=== PATIENT | male | born 1940 | race Caucasian/White ===

== ENCOUNTER 2017-06-12 09:38 | Inpatient (IN) | payer MEDICARE, OTHER ==
[2017-06-12 10:23] LABS: #Eosinphils 0.1 thou/uL (0.0-0.7); #Monocytes 0.6 thou/uL (0.11-0.59); #Neutrophils 7.4 thou/uL (1.40-6.50); %Basophils 0.1 % (0.0-1.0); %Eosinophils 1.4 % (0.0-10.0); %Lymphocytes 10.6 % (21.0-51.0); %Monocytes 6.3 % (0.0-10.0); %Neutrophils 81.7 % (42.0-75.0); Hemoglobin 15.9 g/dL (14.0-18.0); Mean Corpuscular Hemoglobin 33.1 pg (27.0-31.0); Mean Corpuscular Volume 97.5 fl (80.0-94.0); Mean Platelet Volume 7.3 fL (7.4-10.4); Platelet Count 183 thou/uL (130-400); RBC Distribution Width 12.9 % (11.5-14.5)
[2017-06-12 10:33] LABS: INR-International Normal Ratio 1.1; PTT 29.1 SEC (22.9-36.1); Prothrombin Time 14.5 SEC (12.0-14.7)
[2017-06-12 10:50] LABS: ALT (SGPT) 88 U/L (8-55); AST (SGOT) 128 U/L (5-34); Albumin 3.9 g/dL (3.4-4.8); Alkaline Phosphatase 92 U/L (40-150); Anion Gap 9 mmol/L (10-20); BUN (Urea Nitrogen) 16 mg/dL (8.4-25.7); Bilirubin, Total 1.4 mg/dL (0.2-1.2); CK (CPK) 94 U/L (30-200); Calc. Creatinine Clearance 0 mL/min (70-130); Calcium 8.8 mg/dL (7.8-10.44); Carbon Dioxide 27 mmol/L (23-31); Chloride 106 mmol/L (98-107); Estimated GFR-MDRD Greater than 90; Globulin 2.3 g/dL (2.4-3.5); Glucose 142 mg/dL (83-110); Potassium 4.1 mmol/L (3.5-5.1); Protein, Total 6.2 g/dL (5.8-8.1); Sodium 138 mmol/L (136-145)
[2017-06-12 10:52] LABS: CKMB 2.1 ng/mL (0-6.6); Troponin I 0.012 ng/mL (< 0.028)
[2017-06-12] MEDS ORDERED: Pantoprazole 40 MG VIAL ONE (11:29)
[2017-06-12] MEDS ORDERED: Mag-Al 1200 mg/1200 mg/30 ML UDCUP ONE (11:30)
[2017-06-12] MEDS ORDERED: Lidocaine Viscous Sol 2% 15 ml UD Cup ONE (11:31)
--- NOTE | 2017-06-12 13:03 | RAD ---
ONE VIEW CHEST: TWO VIEWS ABDOMEN: HISTORY: Epigastric pain. Chest pain. FINDINGS: CHEST: Slight elongation of the aorta. Normal cardiac silhouette. Pulmonary vessels and hilum are normal. Costophrenic angles are clear. Patchy interstitial opacities without consolidation or mass. Bilateral nipple shadows are noted. No pneumothorax or osseous abnormalities. ABDOMEN: Nonspecific bowel gas pattern. Scattered fecal material in a nondistended, nondilated colo n. No differential air-fluid levels. No pneumoperitoneum. No specific density in the abdomen or pe lvis. IMPRESSION: 1. Atherosclerosis. 2. Patchy interstitial opacities. Correlate for infiltrate. 3. Nonspecific bowel gas pattern. POS: [facility]
[2017-06-12 13:29] LABS: Troponin I Less than 0.010 ng/mL (< 0.028)
[2017-06-12] MEDS ORDERED: Ondansetron HCl/PF 4 MG/2 ML Vial IVP PRN (14:02)
[2017-06-12] MEDS ORDERED: Acetaminophen 325 MG TAB PO PRN (14:02)
[2017-06-12] MEDS ORDERED: Ondansetron ODT 4 MG TAB SL PRN (14:02)
[2017-06-12 14:28] VITALS: BMI 25.7
[2017-06-12] MEDS ORDERED: Acetaminophen 650 MG Suppository PR PRN (14:54)
[2017-06-12] MEDS ORDERED: Nitroglycerin 0.4 MG TAB (25 Tab Bottle) PO PRN (14:54)
[2017-06-12] MEDS: Nitroglycerin 2% Ointment 1 INCH/1 GM Packet TOP SCH ×2 (15:20→20:03)
[2017-06-12] MEDS ORDERED: Aspirin 325 MG TAB PO SCH (16:00)
[2017-06-12 16:42] LABS: Bilirubin Small (Negative); Blood, Urine Negative (Negative); Clarity CLEAR (Clear); Glucose, Urine (Dipstick) Negative (Negative); Leukocyte Negative (Negative); Nitrite Negative (Negative); Protein, Urine (Dipstick) Negative (Neg-Trace); Specific Gravity, Urine 1.027 (1.002-1.036); pH, Urine 5.5 (5.0-9.0)
[2017-06-12] MEDS ORDERED: ISOVUE-370 76%-LOCM 1 ML ONE (16:56)
[2017-06-12] MEDS: Nicotine 21 MG PATCH TD SCH (17:04)
[2017-06-12 17:16] LABS: Troponin I Less than 0.010 ng/mL (< 0.028)
[2017-06-12] MEDS ORDERED: Docusate 100 MG CAP PO PRN (17:33)
[2017-06-12] MEDS ORDERED: Lidocaine 2% Viscous Solution 10 ML, Aluminum & Magnesium Hydroxide 30 ML SSW PRN (17:39)
--- NOTE | 2017-06-12 18:15 | CT ---
CT ABDOMEN WITH CONTRAST CT PELVIS WITH CONTRAST: DATE: 06/12/17 TIME: 5:13 p.m. HISTORY: 77-year-old male with epigastric abdominal pain. COMPARISON: None. TECHNIQUE: IV injection of iodinated contrast media: 100 mL Isovue 370 Oral contrast media: Redi-Cat FINDINGS: No pleural effusion, pneumoperitoneum, or ascites. Significantly changed prostate gland. Diffuse mild mural thickening of the urinary bladder. Normal appendix, right kidney, liver, pancreas, right adren al and spleen. No signs of acute colonic diverticulitis. No small bowel dilation. Extensive atheroscl erosis of abdominal aorta and iliac arteries without aneurysm. Especially severely calcified plaque i n the left common femoral artery associated with high grade stenosis. No moderate sized or large hiat al hernia. No gastric distention. There is a partially exophytic 2.5 cm left renal lateral lower rylan e cortical cyst. No hydronephrosis of the left kidney. There is a nonspecific 1.5 cm left adrenal nod ule. IMPRESSION: 1. No acute findings. 2. Enlarged prostate. 3. Mild mural thickening of the urinary bladder may be related to chronic mild bladder outlet ob struction. 4. Left renal cyst. 5. 1.5 cm nonspecific left adrenal nodule. ROSIO Rose POS: [facility]
--- NOTE | 2017-06-12 18:28 | HP ---
PRIMARY CARE PHYSICIAN: Caity Metcalf D.O. CHIEF COMPLAINT: Epigastric pain. HISTORY OF PRESENT ILLNESS: Mr. Doe is a pleasant 77-year-old gentleman who was seen at [facility] on 06/12/2017. He reports that he developed epigastric pain at 0715 hour s today. He describes it as a cramping sensation, constant, 10/10 at its worst. No known aggravatin g factors. The pain was relieved after he received nitroglycerin from EMS. He denies any shortness of breath. He denies any headache. He denies any lightheadedness. He repor ts nausea. The pain is nonradiating. REVIEW OF SYSTEMS: The following complete review of systems was negative, unless otherwise mentioned in the HPI or below: Constitutional: Weight loss or gain, ability to conduct usual activities. Sk in: Rash, itching. Eyes: Double vision, pain. ENT/Mouth: Nose bleeding, neck stiffness, pain, te nderness. Cardiovascular: Palpitations, dyspnea on exertion, orthopnea. Respiratory: Shortness of breath, wheezing, cough, hemoptysis, fever or night sweats. Gastrointestinal: Poor appetite, abdom inal pain, heartburn, nausea, vomiting, constipation, or diarrhea. Genitourinary: Urgency, frequenc y, dysuria, nocturia. Musculoskeletal: Pain, swelling. Neurologic/Psychiatric: Anxiety, depressio n. Allergy/Immunologic: Skin rash, bleeding tendency. PAST MEDICAL HISTORY: Significant for coronary artery disease, myocardial infarction and hypertensio n. His homebirth midwife is Dr. Irby. PAST SURGICAL HISTORY: Significant for cardiac stents and cataract surgery. PSYCHIATRIC HISTORY: None. SOCIAL HISTORY: The patient drinks 6 pack of beer every day. He smokes 1-1/2 packs of cigarettes a day. He denies recreational drug use. FAMILY HISTORY: No family history of coronary artery disease. ALLERGIES: CODEINE and PENICILLIN. CURRENT MEDICATIONS: Aspirin 325 mg daily, Lipitor 40 mg daily, Colace 100 mg daily as needed, Topro l-XL 50 mg daily, and Accupril 20 mg daily. PHYSICAL EXAMINATION: GENERAL: Mr. Doe is awake and alert, in mild distress. He reports feeling chills. VITAL SIGNS: He is afebrile. Blood pressure is 122/73. Pulse is 86. His breathing at rate of 18, and saturating 99% on room air. EYES: No scleral icterus. No conjunctival pallor. ENT: Moist mucosal membranes, no oropharyngeal erythema or exudates. NECK: Supple, nontender, normal range of movement. Trachea is midline. RESPIRATORY: Accessory muscles of breathing are not active. Chest wall movements are symmetric bila terally. LUNGS: Clear to auscultation without wheeze, rhonchi or crepitations. CARDIOVASCULAR: S1 and S2 are heard, regular. Peripheral pulses palpable. No carotid bruit, no per icardial rub. ABDOMEN: Soft, nontender, bowel sounds are heard, no hepatomegaly, no splenomegaly. Melgar sign is negative. NEUROLOGIC: Cranial nerves II-XII intact. Deep tendon reflexes are 2+. MUSCULOSKELETAL: Power is 5/5 in all 4 extremities. Normal range of movement at all major extremity joints. SKIN: No rashes or subcutaneous nodules. LYMPHATIC: No cervical lymphadenopathy. PSYCHIATRIC: Normal mood, normal affect, patient is oriented to person, place, and time. LABORATORY DATA: Mr. Doe's labs and investigations were reviewed. I reviewed his electrocardi ogram, which shows normal sinus rhythm. He has T-wave inversions in the anterolateral leads. I also reviewed his chest x-ray, which does not show any pulmonary infiltrates. He also had abdominal x-ra ys, which do not show any acute pathology. Laboratory investigations show normal white count, normal hemoglobin, normal platelet count, INR 1.1, normal sodium, normal potassium, normal creatinine, elev ated total bilirubin of 1.4, elevated AST of 128, elevated ALT of 88 and normal troponin I. Alkaline phosphatase is normal. Lipase is low at 5. ASSESSMENT AND PLAN: Mr. Doe is a pleasant 77-year-old gentleman who was seen at [facility] on 06/12/2017. His problem list includes: 1. Epigastric pain: Differential diagnosis is wide includes intra-abdominal as well as intrathoraci c organs. Given the relief of his pain with nitrates, it is possible to be cardiac in origin, especi ally given his risk factors. He will be admitted to the hospital for further management, including t elemetry monitoring. We will obtain a stress test. We will also check CT scan of the abdomen to rul e out any intra-abdominal pathology. We will start him on GI cocktail. We will continue his home me dications, including aspirin. At this point, he is pain free. 2. Chills: Etiology is unclear. This reportedly started only after he reached the room on the obse rvation floor. We will monitor vital signs for now. We will check urine studies as well as blood cu ltures. There is no clear evidence of any infection at this time. He has a normal white count. 3. Abnormal liver function tests. Could be secondary to alcohol abuse. We will recheck LFTs. 4. Tobacco abuse: Patient has been counseled regarding tobacco cessation, we will start him on curt darling replacement therapy. 5. Daily alcohol use: We will start patient on ASE protocol. 6. Hypertension: Monitor vital signs, titrate antihypertensives as needed. Many thanks for allowing me to participate in your patient's care. Please feel free to contact me wi th any questions or concerns. LEVEL OF RISK: High. LEVEL OF COMPLEXITY: High.
[2017-06-12] MEDS: Atorvastatin Calcium 40 MG TAB PO SCH (20:02)
[2017-06-13 05:15] LABS: ALT (SGPT) 715 U/L (8-55); AST (SGOT) 476 U/L (5-34); Albumin 3.5 g/dL (3.4-4.8); Alkaline Phosphatase 129 U/L (40-150); Anion Gap 10 mmol/L (10-20); BUN (Urea Nitrogen) 15 mg/dL (8.4-25.7); Bilirubin, Total 4.2 mg/dL (0.2-1.2); Calc. Creatinine Clearance 97 mL/min (70-130); Calcium 8.3 mg/dL (7.8-10.44); Carbon Dioxide 25 mmol/L (23-31); Chloride 104 mmol/L (98-107); Estimated GFR-MDRD Greater than 90; Globulin 2.2 g/dL (2.4-3.5); Glucose 122 mg/dL (83-110); Potassium 3.5 mmol/L (3.5-5.1); Protein, Total 5.7 g/dL (5.8-8.1); Sodium 135 mmol/L (136-145)
[2017-06-13] MEDS ORDERED: Meropenem 1 GM in Sodium Chloride 0.9% 100 ML IVPB SCH (07:45)
[2017-06-13 08:44] LABS: HBCM Index 0.09 S/CO (0-0.79); HBSAg Index 0.22 S/CO (0-0.99); Hep A IgM AB Non-Reactive (NonReactive); Hep A IgM S/CO 0.11 S/CO (0-0.79); Hep B Surf Ag Non-Reactive S/CO (NonReactive); Hep C IgG Ab Non-Reactive (NonReactive); Hep C Index 0.24 S/CO (0-0.79); Hepatitis B Core IGM Abs Non-Reactive (NonReactive)
[2017-06-13] MEDS: Aspirin 325 MG TAB PO SCH (09:41)
[2017-06-13] MEDS: Enoxaparin Sodium 40 MG/0.4 ML SYRINGE SC SCH (09:42)
[2017-06-13] MEDS: Meropenem 1 GM in Sterile Water 20 ML SLOW IVP SCH ×2 (11:51→18:14)
[2017-06-13] MEDS: Nicotine 21 MG PATCH TD SCH (13:51)
--- NOTE | 2017-06-13 14:49 | PDOC.PN ---
- Subjective Encounter Start Date: 06/13/17 Encounter Start Time: 07:40 Pt seen for followup re: bacteremia. Denies chest pain. Chills better. No nausea or vomiting. No abdominal pain. - Objective MAR Reviewed: Yes Vital Signs & Weight: Vital Signs (12 hours) Temp Pulse Resp BP BP BP Pulse Ox 06/13/17 13:29 97.9 F 68 18 112/56 L 97 06/13/17 12:45 97.9 F 68 18 97 06/13/17 12:03 98.6 F 71 16 155/55 H 94 L 06/13/17 10:54 95 06/13/17 09:40 104/70 06/13/17 09:30 104/70 06/13/17 08:50 99.0 F 73 16 93 L Result Diagrams: 06/12/17 10:07 06/13/17 04:28 EKG Reviewed by me: Yes (Tele: NSR) Phys Exam - Physical Examination Constitutional: NAD HEENT: PERRLA, moist MMs, oral pharynx no lesions Scleral icterus Neck: no nodes, no JVD, supple, full ROM Respiratory: no wheezing, no rales, no rhonchi, clear to auscultation bilateral Cardiovascular: RRR, no rub Gastrointestinal: soft, non-tender, no distention, positive bowel sounds Musculoskeletal: pulses present Neurological: moves all 4 limbs Psychiatric: normal affect, A&O x 3 Skin: no rash Dx/Plan (1) Bacteremia Code(s): R78.81 - BACTEREMIA Status: Acute Comment: Start IV meropenem, await culture and sensitivities (GNR on blood culture) (2) Abnormal LFTs Code(s): R94.5 - ABNORMAL RESULTS OF LIVER FUNCTION STUDIES Status: Acute Comment: ? secondary to sepsis; Check acute hepatitis serology (3) HTN (hypertension) Code(s): I10 - ESSENTIAL (PRIMARY) HYPERTENSION Status: Chronic Comment: Monitor vital signs, titrate antihypertensives as needed (4) Tobacco abuse Code(s): Z72.0 - TOBACCO USE Status: Chronic Comment: Continue nicotine replacement therapy (5) Alcohol dependence, daily use Code(s): F10.20 - ALCOHOL DEPENDENCE, UNCOMPLICATED Status: Chronic Comment : Continue ASE protocol - Plan * . Pt does not have epigastric or chest pain at this time. Hold off on stress test. Review of Systems - Review of Systems Constitutional: negative: fever, chills, sweats, weakness, malaise Respiratory: negative: Cough, Dry, Shortness of Breath, Hemoptysis, SOB with Excertion, Pleuritic Pain, Sputum, Wheezing Cardiovascular: negative: chest pain, palpitations, orthopnea, paroxysmal nocturnal dyspnea, edema, light headedness Gastrointestinal: negative: Nausea, Vomiting, Abdominal Pain, Diarrhea, Constipation, Melena, Hematochezia Genitourinary: negative: Dysuria, Frequency, Incontinence, Hematuria, Retention - Medications/Allergies Allergies/Adverse Reactions: Allergies Allergy/AdvReac Type Severity Reaction Status Date / Time codeine Allergy Verified 06/12/17 14:24 Penicillins Allergy Verified 06/12/17 14:24 Medications: Current Medications Acetaminophen (Tylenol) 650 mg PO Q4H PRN PRN Reason: Headache/Fever or Pain Acetaminophen (Tylenol) 650 mg AL Q4H PRN PRN Reason: Headache/Fever or Pain Aspirin (Aspirin) 325 mg PO DAILY [facility] Last Admin: 06/13/17 09:41 Dose: 325 mg Atorvastatin Calcium (Lipitor) 40 mg PO QPM [facility] Last Admin: 06/12/17 20:02 Dose: 40 mg Lidocaine HCl 10 ml/ Al (Hydroxide/Mg Hydroxide 30 ml) 0 ml SSW Q6H PRN PRN Reason: heartburn Docusate Sodium (Colace) 100 mg PO DAILY PRN PRN Reason: Constipation Enoxaparin Sodium (Lovenox) 40 mg SC 0900 [facility] Last Admin: 06/13/17 09:42 Dose: 40 mg Meropenem 1 gm/ Sterile Water 20 mls @ 240 mls/hr SLOW IVP Q8H [facility] Last Admin: 06/13/17 11:51 Dose: 20 mls Metoprolol Succinate (Toprol Xl) 50 mg PO DAILY [facility] Last Admin: 06/13/17 09:40 Dose: 50 mg Nicotine (Nicoderm Patch) 21 mg TD Q24HR [facility] Last Admin: 06/13/17 13:51 Dose: Not Given Nitroglycerin (Nitrostat) 0.4 mg PO Q5MIN PRN PRN Reason: Chest Pain Quinapril HCl (Accupril) 20 mg PO DAILY [facility] Last Admin: 06/13/17 09:40 Dose: 20 mg
[2017-06-13] MEDS: Atorvastatin Calcium 40 MG TAB PO SCH (20:10)
[2017-06-14] MEDS: Acetaminophen 325 MG TAB PO PRN ×2 (00:17→16:31)
[2017-06-14] MEDS: Meropenem 1 GM in Sterile Water 20 ML SLOW IVP SCH ×3 (00:24→17:43)
[2017-06-14 06:21] LABS: ALT (SGPT) 410 U/L (8-55); AST (SGOT) 142 U/L (5-34); Albumin 3.6 g/dL (3.4-4.8); Alkaline Phosphatase 131 U/L (40-150); Anion Gap 11 mmol/L (10-20); BUN (Urea Nitrogen) 16 mg/dL (8.4-25.7); Bilirubin, Total 2.6 mg/dL (0.2-1.2); Calc. Creatinine Clearance 85 mL/min (70-130); Calcium 8.8 mg/dL (7.8-10.44); Carbon Dioxide 27 mmol/L (23-31); Chloride 103 mmol/L (98-107); Estimated GFR-MDRD 83; Globulin 2.4 g/dL (2.4-3.5); Glucose 108 mg/dL (83-110); Potassium 4.2 mmol/L (3.5-5.1); Sodium 137 mmol/L (136-145)
[2017-06-14 08:23] LABS: #Lymphocytes 0.3 thou/uL (1.20-3.40); #Monocytes 0.2 thou/uL (0.11-0.59); #Neutrophils 5.2 thou/uL (1.40-6.50); %Basophils 0.1 % (0.0-1.0); %Eosinophils 0.3 % (0.0-10.0); %Lymphocytes 5.9 % (21.0-51.0); %Monocytes 3.5 % (0.0-10.0); %Neutrophils 90.1 % (42.0-75.0); Hemoglobin 14.9 g/dL (14.0-18.0); Mean Corpuscular HGB CONC 32.6 g/dL (32.0-36.0); Mean Corpuscular Volume 98.1 fl (80.0-94.0); PLT Morphology Comment Appears Decreased; Platelet Count 102 thou/uL (130-400); RBC Morphology Normal; Red Blood Cell (RBC) Count 4.65 mill/uL (4.70-6.10); White Blood Cell (WBC) Count 5.8 thou/uL (4.8-10.8)
[2017-06-14] MEDS: Enoxaparin Sodium 40 MG/0.4 ML SYRINGE SC SCH (09:25)
[2017-06-14] MEDS: Aspirin 325 MG TAB PO SCH (09:26)
--- NOTE | 2017-06-14 15:35 | PDOC.PN ---
- Subjective Encounter Start Date: 06/14/17 Encounter Start Time: 08:00 Pt seen for followup re: bacteremia. Feels better. Denies chest pain. No nausea or vomiting. - Objective MAR Reviewed: Yes Vital Signs & Weight: Vital Signs (12 hours) Temp Pulse Resp BP BP BP Pulse Ox 06/14/17 12:00 112/71 06/14/17 11:17 98.4 F 69 18 112/71 06/14/17 09:26 136/70 06/14/17 08:00 136/70 06/14/17 07:41 98 06/14/17 07:22 99.9 F H 85 16 136/70 93 L 06/14/17 04:00 97.9 F 64 17 105/54 L 105/54 L 99 I&O: 06/13/17 06/14/17 06/15/17 06:59 06:59 06:59 Intake Total 500 Output Total 2 Balance 498 Result Diagrams: 06/14/17 05:30 06/14/17 05:30 EKG Reviewed by me: Yes (Tele: NSR) Phys Exam - Physical Examination Constitutional: NAD HEENT: moist MMs Icterus+ Neck: supple Respiratory: clear to auscultation bilateral Cardiovascular: RRR Gastrointestinal: soft Neurological: moves all 4 limbs Psychiatric: normal affect, A&O x 3 Dx/Plan (1) Bacteremia Code(s): R78.81 - BACTEREMIA Status: Acute Comment: Willams-sensitive E. coli. Consult ID re: any further tests +/- duration of therapy (2) Abnormal LFTs Code(s): R94.5 - ABNORMAL RESULTS OF LIVER FUNCTION STUDIES Status: Acute Comment: LFTs improving, likely due to sepsis (3) HTN (hypertension) Code(s): I10 - ESSENTIAL (PRIMARY) HYPERTENSION Status: Chronic Comment: titrate antihypertensives as needed (4) Tobacco abuse Code(s): Z72.0 - TOBACCO USE Status: Chronic Comment: Continue nicotine replacement therapy (5) Alcohol dependence, daily use Code(s): F10.20 - ALCOHOL DEPENDENCE, UNCOMPLICATED Status: Chronic Comment : Continue ASE protocol - Plan continue antibiotics, out of bed/ambulate * . Pt does not have chest pain at this time. However, given his presentation he will likely need a stress test prior to discharge. Will keep pt NPO after midnight, decide tomorrow depending on how he does. Review of Systems - Review of Systems Respiratory: negative: Cough, Dry, Shortness of Breath, Hemoptysis, SOB with Excertion, Pleuritic Pain, Sputum, Wheezing Cardiovascular: negative: chest pain, palpitations, orthopnea, paroxysmal nocturnal dyspnea, edema, light headedness Gastrointestinal: negative: Nausea, Vomiting, Abdominal Pain, Diarrhea, Constipation, Melena, Hematochezia - Medications/Allergies Allergies/Adverse Reactions: Allergies Allergy/AdvReac Type Severity Reaction Status Date / Time codeine Allergy Verified 06/12/17 14:24 Penicillins Allergy Verified 06/12/17 14:24 Medications: Current Medications Acetaminophen (Tylenol) 650 mg PO Q4H PRN PRN Reason: Headache/Fever or Pain Last Admin: 06/14/17 00:17 Dose: 650 mg Acetaminophen (Tylenol) 650 mg [place] Q4H PRN PRN Reason: Headache/Fever or Pain Aspirin (Aspirin) 325 mg PO DAILY [facility] Last Admin: 06/14/17 09:26 Dose: 325 mg Atorvastatin Calcium (Lipitor) 40 mg PO QPM [facility] Last Admin: 06/13/17 20:10 Dose: 40 mg Lidocaine HCl 10 ml/ Al (Hydroxide/Mg Hydroxide 30 ml) 0 ml SSW Q6H PRN PRN Reason: heartburn Docusate Sodium (Colace) 100 mg PO DAILY PRN PRN Reason: Constipation Enoxaparin Sodium (Lovenox) 40 mg SC 0900 [facility] Last Admin: 06/14/17 09:25 Dose: 40 mg Meropenem 1 gm/ Sterile Water 20 mls @ 240 mls/hr SLOW IVP Q8H [facility] Last Admin: 06/14/17 09:26 Dose: 20 mls Metoprolol Succinate (Toprol Xl) 50 mg PO DAILY [facility] Last Admin: 06/14/17 09:26 Dose: 50 mg Nicotine (Nicoderm Patch) 21 mg TD Q24HR [facility] Last Admin: 06/13/17 13:51 Dose: Not Given Nitroglycerin (Nitrostat) 0.4 mg PO Q5MIN PRN PRN Reason: Chest Pain Quinapril HCl (Accupril) 20 mg PO DAILY [facility] Last Admin: 06/14/17 09:26 Dose: 20 mg
[2017-06-14] MEDS: Nicotine 21 MG PATCH TD SCH (15:54)
[2017-06-14] MEDS: Atorvastatin Calcium 40 MG TAB PO SCH (21:51)
[2017-06-15] MEDS: Sodium Chloride 0.9% 10 ML ONE ×2 (02:58→09:35)
[2017-06-15] MEDS: Meropenem 1 GM in Sterile Water 20 ML SLOW IVP SCH ×3 (02:58→17:57)
[2017-06-15 05:10] LABS: #Lymphocytes 0.5 thou/uL (1.20-3.40); #Monocytes 0.3 thou/uL (0.11-0.59); #Neutrophils 2.8 thou/uL (1.40-6.50); %Eosinophils 0.5 % (0.0-10.0); %Lymphocytes 13.9 % (21.0-51.0); %Monocytes 7.1 % (0.0-10.0); %Neutrophils 78.5 % (42.0-75.0); Mean Corpuscular HGB CONC 34.6 g/dL (32.0-36.0); Mean Corpuscular Hemoglobin 32.6 pg (27.0-31.0); Mean Platelet Volume 7.5 fL (7.4-10.4); Platelet Count 83 thou/uL (130-400); RBC Distribution Width 12.6 % (11.5-14.5); White Blood Cell (WBC) Count 3.6 thou/uL (4.8-10.8)
[2017-06-15 05:17] LABS: ALT (SGPT) 227 U/L (8-55); AST (SGOT) 58 U/L (5-34); Albumin 3.1 g/dL (3.4-4.8); Alkaline Phosphatase 101 U/L (40-150); Anion Gap 10 mmol/L (10-20); BUN (Urea Nitrogen) 17 mg/dL (8.4-25.7); Bilirubin, Total 1.3 mg/dL (0.2-1.2); Calc. Creatinine Clearance 104 mL/min (70-130); Carbon Dioxide 24 mmol/L (23-31); Chloride 101 mmol/L (98-107); Estimated GFR-MDRD Greater than 90; Globulin 2.2 g/dL (2.4-3.5); Glucose 111 mg/dL (83-110); Potassium 3.5 mmol/L (3.5-5.1); Protein, Total 5.3 g/dL (5.8-8.1); Sodium 131 mmol/L (136-145)
[2017-06-15] MEDS: Enoxaparin Sodium 40 MG/0.4 ML SYRINGE SC SCH (09:34)
[2017-06-15] MEDS: Aspirin 325 MG TAB PO SCH (09:34)
--- NOTE | 2017-06-15 14:43 | NM ---
NUCLEAR MEDICINE CARDIAC MYOCARDIAL PERFUSION SPECT EJECTION FRACTION STUDY WALL MOTION CINE: 06/15/2017 HISTORY: A 77-year-old male with a history of coronary artery disease, prior myocardial infarction, hypertensi on, and smoking, now presents with acute chest pain. TECHNIQUE: Number of days: One. Rest study: Tc99m sestamibi (Cardiolite) dose: 9.1 mCi Pharmacologic stress: adenosine dose: 52.6 mg Stress study: Tc99m sestamibi (Cardiolite) dose: 33 mCi FINDINGS: CARDIAC (MYOCARDIAL PERFUSION) SPECT There is a moderate-large defect at the left ventricular cardiac apex. No reversible perfusion defec t is identified. There is chamber dilation. EJECTION FRACTION STUDY EF = 46% WALL MOTION CINE: Difficult to evaluate the wall motion of the apex. No focal wall motion abnormality in the rest of t he left ventricle. IMPRESSION: 1. Moderate-large infarction/scar at the apex. 2. Left ventricular ejection fraction 46%. 3. No reversible ischemia identified. ROSIO Rose POS: OLIVIA
[2017-06-15] MEDS ORDERED: ADENOSINE 60 MG/20 ML VIAL ONE (15:11)
[2017-06-15] MEDS: Nicotine 21 MG PATCH TD SCH (15:38)
[2017-06-15] MEDS: Acetaminophen 325 MG TAB PO PRN (15:40)
--- NOTE | 2017-06-15 16:56 | PDOC.PN ---
- Subjective Encounter Start Date: 06/15/17 Encounter Start Time: 15:00 Pt seen for followup re: bacteremia. No fevers or chills. Feels better. - Objective MAR Reviewed: Yes Vital Signs & Weight: Vital Signs (12 hours) Temp Pulse Resp BP BP Pulse Ox 06/15/17 13:47 120/59 L 06/15/17 12:00 99.0 F 70 16 120/59 L 06/15/17 08:48 92 L 06/15/17 08:00 99.8 F H 69 18 112/61 94 L Weight Weight 194 lb 11.2 oz I&O: 06/14/17 06/15/17 06/16/17 06:59 06:59 06:59 Intake Total 500 820 270 Output Total 2 400 400 Balance 498 420 -130 Result Diagrams: 06/15/17 04:53 06/15/17 04:53 EKG Reviewed by me: Yes (Tele: NSR) Phys Exam - Physical Examination Constitutional: NAD HEENT: moist MMs Neck: supple Respiratory: clear to auscultation bilateral Cardiovascular: RRR Gastrointestinal: soft Neurological: moves all 4 limbs Psychiatric: normal affect Dx/Plan (1) Bacteremia Code(s): R78.81 - BACTEREMIA Status: Acute Comment: Willams-sensitive E. coli. ID consult pending. (2) Abnormal LFTs Code(s): R94.5 - ABNORMAL RESULTS OF LIVER FUNCTION STUDIES Status: Acute Comment: LFTs still improving, likely due to sepsis (3) HTN (hypertension) Code(s): I10 - ESSENTIAL (PRIMARY) HYPERTENSION Status: Chronic Comment: Monitor vital signs and titrate antihypertensives as needed (4) Tobacco abuse Code(s): Z72.0 - TOBACCO USE Status: Chronic Comment: Pt stopped NRT since it gave him high blood pressure in the past (5) Alcohol dependence, daily use Code(s): F10.20 - ALCOHOL DEPENDENCE, UNCOMPLICATED Status: Chronic Comment : ASE protocol - Plan * . Stress test showing infarct, no reversible ischemia. Likely home after seen by ID service. Review of Systems - Review of Systems Respiratory: negative: Cough, Dry, Shortness of Breath, Hemoptysis, SOB with Excertion, Pleuritic Pain, Sputum, Wheezing Cardiovascular: negative: chest pain, palpitations, orthopnea, paroxysmal nocturnal dyspnea, edema, light headedness - Medications/Allergies Allergies/Adverse Reactions: Allergies Allergy/AdvReac Type Severity Reaction Status Date / Time codeine Allergy Verified 06/12/17 14:24 Penicillins Allergy Verified 06/12/17 14:24 Medications: Current Medications Acetaminophen (Tylenol) 650 mg PO Q4H PRN PRN Reason: Headache/Fever or Pain Last Admin: 06/15/17 15:40 Dose: 650 mg Acetaminophen (Tylenol) 650 mg [place] Q4H PRN PRN Reason: Headache/Fever or Pain Aspirin (Aspirin) 325 mg PO DAILY [facility] Last Admin: 06/15/17 09:34 Dose: 325 mg Atorvastatin Calcium (Lipitor) 40 mg PO QPM [facility] Last Admin: 06/14/17 21:51 Dose: 40 mg Lidocaine HCl 10 ml/ Al (Hydroxide/Mg Hydroxide 30 ml) 0 ml SSW Q6H PRN PRN Reason: heartburn Docusate Sodium (Colace) 100 mg PO DAILY PRN PRN Reason: Constipation Enoxaparin Sodium (Lovenox) 40 mg SC 0900 [facility] Last Admin: 06/15/17 09:34 Dose: 40 mg Meropenem 1 gm/ Sterile Water 20 mls @ 240 mls/hr SLOW IVP Q8H [facility] Last Admin: 06/15/17 09:39 Dose: 20 mls Metoprolol Succinate (Toprol Xl) 50 mg PO DAILY [facility] Last Admin: 06/15/17 13:48 Dose: 50 mg Nicotine (Nicoderm Patch) 21 mg TD Q24HR [facility] Last Admin: 06/15/17 15:38 Dose: Not Given Nitroglycerin (Nitrostat) 0.4 mg PO Q5MIN PRN PRN Reason: Chest Pain Quinapril HCl (Accupril) 20 mg PO DAILY [facility] Last Admin: 06/15/17 13:47 Dose: 20 mg
[2017-06-15] MEDS ORDERED: Sodium Chloride 0.9% 10 ML ONE (17:30)
[2017-06-15] MEDS: Atorvastatin Calcium 40 MG TAB PO SCH (22:00)
[2017-06-16] MEDS: Meropenem 1 GM in Sterile Water 20 ML SLOW IVP SCH ×3 (00:12→17:05)
[2017-06-16] MEDS: Acetaminophen 325 MG TAB PO PRN (00:13)
[2017-06-16 05:46] LABS: #Lymphocytes 0.7 thou/uL (1.20-3.40); #Monocytes 0.4 thou/uL (0.11-0.59); #Neutrophils 1.6 thou/uL (1.40-6.50); %Basophils 1.2 % (0.0-1.0); %Eosinophils 0.6 % (0.0-10.0); %Lymphocytes 24.9 % (21.0-51.0); %Monocytes 14.9 % (0.0-10.0); %Neutrophils 58.5 % (42.0-75.0); Hemoglobin 14.3 g/dL (14.0-18.0); Mean Corpuscular HGB CONC 33.8 g/dL (32.0-36.0); Mean Corpuscular Hemoglobin 32.6 pg (27.0-31.0); Mean Corpuscular Volume 96.6 fl (80.0-94.0); Mean Platelet Volume 8.1 fL (7.4-10.4); Platelet Count 76 thou/uL (130-400); RBC Distribution Width 12.8 % (11.5-14.5); Red Blood Cell (RBC) Count 4.39 mill/uL (4.70-6.10); White Blood Cell (WBC) Count 2.8 thou/uL (4.8-10.8)
[2017-06-16 05:55] LABS: ALT (SGPT) 173 U/L (8-55); AST (SGOT) 49 U/L (5-34); Albumin 3.2 g/dL (3.4-4.8); Alkaline Phosphatase 104 U/L (40-150); Anion Gap 8 mmol/L (10-20); BUN (Urea Nitrogen) 13 mg/dL (8.4-25.7); Calc. Creatinine Clearance 104 mL/min (70-130); Calcium 8.5 mg/dL (7.8-10.44); Carbon Dioxide 29 mmol/L (23-31); Chloride 102 mmol/L (98-107); Estimated GFR-MDRD Greater than 90; Globulin 2.2 g/dL (2.4-3.5); Glucose 113 mg/dL (83-110); Potassium 3.8 mmol/L (3.5-5.1); Protein, Total 5.4 g/dL (5.8-8.1); Sodium 135 mmol/L (136-145)
[2017-06-16] MEDS: Enoxaparin Sodium 40 MG/0.4 ML SYRINGE SC SCH (09:06)
[2017-06-16] MEDS: Aspirin 325 MG TAB PO SCH (09:06)
--- NOTE | 2017-06-16 13:41 | CON ---
DATE OF CONSULTATION: 06/15/2017 REASON FOR CONSULTATION: Abdominal pain and bacteremia. HISTORY OF PRESENT ILLNESS: A 77-year-old with history of coronary artery disease with previous [place] a s well as hypertension in his usual state of health until the morning of admission when he developed fairly rapid onset of epigastric pain, quite intense, rated at 10/10. The patient was given nitrogly cerin with improvement and was brought to the emergency room. Initial findings blood pressure 120/73 , pulse 86, respiratory rate 18 and O2 sat 99%. He is awake and alert, in mild distress, having some chills. His temperature was intact. His neck was supple. Lungs with normal findings. Heart exam ination was normal. Abdomen was not tender, soft. The initial lab data, remarkable for white cell c ount 9.0, hemoglobin 15, platelets 183 with 81% neutrophils. Bilirubin was 1.4, AST 128 and ALT 88. The next day, the bilirubin went up to 4.2 and AST 476, ALT up to 716 and alkaline phosphatase remai shilpa 129. Subsequently, the bilirubin has steadily come down to 1.0. Transaminases have returned to lower levels, but still elevated with the predominance of ALT. Albumin is down to 3.2, globulin 2.2 and lipase 5. CK was 94 and troponin was less than 0.01. Urinalysis was essentially normal except f or small bilirubin. Hepatitis serology negative and microbiology with 2/2 sets of blood culture with probably susceptible strain of E. coli. Urine culture negative at 36 hours. The patient had a CT o f the abdomen and pelvis and the interpretation shows mural thickening urinary bladder, normal append ix, normal liver, pancreas, adrenal and spleen. No comment is given for the gallbladder or biliary t ract. The patient was treated with broad-spectrum antimicrobial therapy with meropenem. Currently, he is awake, alert and oriented. The pain has resolved. No headaches, visual symptoms, s ore throat, odynophagia or dysphagia. No cough or sputum production or chest pain. No diarrhea. No genitourinary symptoms. 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 No neurological symptoms. The patient had a stress test with radiology assistance that was a moderate large infarction scar at the apex. EF of 46%. No reversible ischemia identified. PAST MEDICAL HISTORY: Coronary artery disease probably [place]. PAST SURGICAL HISTORY: Cardiac stents and cataract surgery. SOCIAL HISTORY: Drinks daily. Smokes daily. Lives in [place]. FAMILY HISTORY: Noncontributory. ALLERGIES: CODEINE and PENICILLIN with rash. CURRENT MEDICATIONS: Tylenol, aspirin, Lipitor, Colace, Lovenox, Toprol, meropenem, nicotine and dacia napril. PHYSICAL EXAMINATION: VITAL SIGNS: T-max 101 and then he relapsed on his temperature elevation of 101.3 on 06/16. GENERAL: Appears in no distress. He was standing up in the bathroom when I arrived in the room. He is pleasant. SKIN: Essentially normal. Peripheral IV access. No Smart catheter. No lymphadenopathy. HEENT: Ocular movements conjugate. Nasal passages and ear exam normal. Oral cavity with no te-moak teeth in place. NECK: Supple. No jugular venous distention. LUNGS: Symmetric clear breath sounds, maybe faint inspiratory crackles at the left base. HEART: S1 and S2, regular rate. No S3 or S4. ABDOMEN: Soft. BACK: No tenderness anywhere. No ascites or organomegaly. No bladder distention. GENITAL: Normal. MUSCULOSKELETAL: Evidence of arthrosis in hips and knees, but no inflammatory changes. Pulses 1+ in dorsalis pedis. Plantar responses are flexure. No clonus. Strength in upper and lower extremities is 5/5. NEUROLOGIC: Cognitive function appears to be intact. LABORATORY DATA: Has been described above. The latest white cell count is 2.8, hemoglobin [address] atelets 76,000. Chemistry with sodium of 135, creatinine 0.77, bilirubin is down to 1.0, AST down to 49, ALT 173 and alkaline phosphatase normal. ASSESSMENT: 1. Coronary artery disease. 2. Acute onset of epigastric pain with elevation in bilirubin and transaminases now with evidence of improvement over the past 3 days with normalization of bilirubin and downward trend of the transamin ases. 3. Escherichia coli bacteremia with a broadly susceptible strain. 4. Normal urinalysis and negative urine culture. DISCUSSION: The differential diagnosis includes biliary tract abnormality, for example choledocholit hiasis with transient obstruction and cholangitis is the most likely scenario. Sphincter dyssynergia would be another possibility. A mass lesion in the biliary duct with obstruction is less likely sin ce one would not expect improvement in the liver panel abnormalities. Likewise, a liver abscess, one would not expect there is rapid improvement in the transaminases and bilirubin. Recommend ultrasoun d of the gallbladder and biliary tract and switch him to oral ciprofloxacin. Regarding discharge layo ing, ideally one would like to make sure that he remains afebrile and we review the results of the ultrasound before discharge. He is in a hurry to go home to take care of his animals and he seems to be clinically stable and one could in vision discharge planning with follow up in the outpatient set ting, but it all hinges on the results of the abdominal ultrasound.
--- NOTE | 2017-06-16 13:50 | PDOC.PN ---
- Subjective Encounter Start Date: 06/16/17 Encounter Start Time: 13:47 Mr. Doe was seen today in follow-up. He says he feels fine. He denies abdominal pain, he denies nausea or vomiting. - Objective MAR Reviewed: Yes Vital Signs & Weight: Vital Signs (12 hours) Temp Pulse Resp BP BP BP Pulse Ox 06/16/17 12:00 98.3 F 59 L 18 103/59 L 98 06/16/17 09:06 124/64 06/16/17 04:15 98.0 F 55 L 20 124/66 94 L Weight Weight 192 lb 12.8 oz I&O: 06/15/17 06/16/17 06/17/17 06:59 06:59 06:59 Intake Total 820 1290 Output Total 400 2200 Balance 420 -910 Result Diagrams: 06/16/17 05:24 06/16/17 05:24 Phys Exam - Physical Examination HEENT: PERRLA Respiratory: no wheezing, no rales, no rhonchi, clear to auscultation bilateral Cardiovascular: RRR, no significant murmur, no rub Gastrointestinal: soft, non-tender, no distention, positive bowel sounds Musculoskeletal: no edema Dx/Plan (1) Bacteremia, escherichia coli Code(s): R78.81 - BACTEREMIA Status: Acute (2) Coronary artery disease Code(s): I25.10 - ATHSCL HEART DISEASE OF [place] CORONARY ARTERY W/O ANG PCTRS Status: Chronic (3) Abnormal LFTs Code(s): R94.5 - ABNORMAL RESULTS OF LIVER FUNCTION STUDIES Status: Acute Comment: LFTs still improving, likely due to sepsis (4) HTN (hypertension) Code(s): I10 - ESSENTIAL (PRIMARY) HYPERTENSION Status: Chronic Comment: Monitor vital signs and titrate antihypertensives as needed (5) Tobacco abuse Code(s): Z72.0 - TOBACCO USE Status: Chronic Comment: Pt stopped NRT since it gave him high blood pressure in the past - Plan * E. Coli Bacteremia- discussed with Dr. Weaver- he likely had a common duct stone which may have passed- Abdominal Ultrasound has been ordered * Continue Meropenem- but this can be changed soon, the E. Coli was sensitive adams-sensitive * CAD- stable- stress test was negative for any reversible ischemia ( old scar was noted consistent with his history of [place]) * Tobacco abuse- smoking cessation was discussed * HTN- blood pressure is controlled.
[2017-06-16] MEDS: Nicotine 21 MG PATCH TD SCH (15:00)
--- NOTE | 2017-06-16 18:21 | ULT ---
LONG PAUSE Common bile duct diameter is 0.5 cm. Main portal vein is patent. Appropriate directional flow. Echogenic focus in the lumen of the gallbladder which may represent a small nonshadowing stone. Gallb ladder wall is not thickened. No pericholecystic fluid. POS: PPP
[2017-06-16] MEDS: Atorvastatin Calcium 40 MG TAB PO SCH (20:41)
[2017-06-17] MEDS: Meropenem 1 GM in Sterile Water 20 ML SLOW IVP SCH ×2 (00:57→10:04)
[2017-06-17 06:51] LABS: Band 8 % (5-11); Eosinophils 2 % (0-10); Hemoglobin 13.9 g/dL (14.0-18.0); Lymphocytes 36 % (21-51); MDiff Complete? YES; Mean Corpuscular HGB CONC 33.4 g/dL (32.0-36.0); Mean Corpuscular Hemoglobin 32.1 pg (27.0-31.0); Mean Corpuscular Volume 96.2 fl (80.0-94.0); Mean Platelet Volume 8.4 fL (7.4-10.4); Monocytes 3 % (0-10); Neutrophil 51 % (42-75); PLT Morphology Comment Appears Decreased; Platelet Count 89 thou/uL (130-400); RBC Distribution Width 12.9 % (11.5-14.5); Red Blood Cell (RBC) Count 4.34 mill/uL (4.70-6.10); White Blood Cell (WBC) Count 5.7 thou/uL (4.8-10.8)
[2017-06-17] MEDS: Aspirin 325 MG TAB PO SCH (08:44)
[2017-06-17] MEDS: Enoxaparin Sodium 40 MG/0.4 ML SYRINGE SC SCH (08:45)
--- NOTE | 2017-06-17 10:06 | PDOC.PN ---
- Subjective Encounter Start Date: 06/17/17 Encounter Start Time: 10:04 Mr. Doe was seen today in follow-up. He does not have any complaints today. He says he feels fine. - Objective MAR Reviewed: Yes Vital Signs & Weight: Vital Signs (12 hours) Temp Pulse Resp BP BP BP Pulse Ox 06/17/17 08:44 135/63 06/17/17 08:00 98.3 F 67 18 135/63 95 06/17/17 05:19 94 L 06/17/17 03:58 98.8 F 60 18 133/70 94 L 06/17/17 00:55 98.9 F 62 17 139/72 97 Weight Weight 193 lb 9.6 oz I&O: 06/16/17 06/17/17 06/18/17 06:59 06:59 06:59 Intake Total 1290 1440 Output Total 2200 1450 Balance -910 -10 Result Diagrams: 06/17/17 05:48 06/16/17 05:24 Phys Exam - Physical Examination HEENT: PERRLA Respiratory: no wheezing, no rales, no rhonchi, clear to auscultation bilateral Cardiovascular: RRR, no significant murmur Gastrointestinal: soft, non-tender, positive bowel sounds Musculoskeletal: no edema Dx/Plan (1) Bacteremia, escherichia coli Code(s): R78.81 - BACTEREMIA Status: Acute (2) Coronary artery disease Code(s): I25.10 - ATHSCL HEART DISEASE OF [place] CORONARY ARTERY W/O ANG PCTRS Status: Chronic (3) Abnormal LFTs Code(s): R94.5 - ABNORMAL RESULTS OF LIVER FUNCTION STUDIES Status: Acute Comment: LFTs still improving, likely due to sepsis (4) HTN (hypertension) Code(s): I10 - ESSENTIAL (PRIMARY) HYPERTENSION Status: Chronic Comment: Monitor vital signs and titrate antihypertensives as needed (5) Tobacco abuse Code(s): Z72.0 - TOBACCO USE Status: Chronic Comment: Pt stopped NRT since it gave him high blood pressure in the past - Plan * E Coli Sepsis, with transient elevation in LFT's and Stone in Gallbladder- discussed the results with the patient * Continue Meropenem * Will consult General Surgery for possible Cholecystectomy * HTN- blood pressure is stable * CAD- stress test was negative for reversible ischemia- stable .
--- NOTE | 2017-06-17 11:23 | CON ---
DATE OF CONSULTATION: 06/17/2017 CHIEF COMPLAINT: Epigastric pain. HISTORY: This is a 77-year-old male, who was admitted 5 days ago with severe epigastric pain. He pyle d had a previous myocardial infarction in 1998. It was similar pain to that. So, he was admitted an d he had a stress echo, which showed an old infarct at the apex of his heart. His EF was 46%, no rev ersible ischemia. Nitroglycerin did help that pain. He did have some nausea with it. His bilirubin climbed to 4.2, and he also started having fever and blood cultures were obtained that showed E. col i. He is much better now. His bilirubin has gone back down to normal. PAST MEDICAL HISTORY: Significant for hypertension, coronary artery disease. He had a myocardial in farction in 1998. PAST SURGICAL HISTORY: His surgeries include coronary artery stents, and cataract surgery. MEDICATIONS: He is on aspirin, Lipitor, Lovenox, Toprol, meropenem, nitroglycerin, quinapril. ALLERGIES: He has an allergy to CODEINE and PENICILLIN. PHYSICAL EXAMINATION: VITAL SIGNS: Temperature 98.3, pulse 67, blood pressure 135/63. GENERAL: He is awake, alert, does not appear to be in any distress. HEENT: No jaundice. LUNGS: Clear. HEART: Regular rate and rhythm. ABDOMEN: Soft, nondistended, no significant tenderness. EXTREMITIES: Unremarkable. LABORATORY AND X-RAY FINDINGS: His white count is 5.7, H and H 13 and 41, platelet count 89,000. El ectrolytes are fine. Elevated glucose of 113, total bilirubin 1, ALT is 193, AST of 49. Ultrasound showed a small stone. No pericholecystic fluid. Common duct was 0.5. ASSESSMENT: He probably passed a stone, cholelithiasis. PLAN: Recommend laparoscopic cholecystectomy with cholangiogram. He just ate. We will plan on parthasaranya herbie this tomorrow morning. CONSENT: I have discussed the planned procedure as well as risk of bleeding, infection, injury to bi le duct, injury to bowel, need to open. He understands and gives informed consent.
--- NOTE | 2017-06-17 16:12 | CON ---
DATE OF CONSULTATION: 06/17/2017 REASON FOR CONSULTATION: Preoperative evaluation. PRIMARY MANUFACTURING OPERATOR: Jorge Irby M.D. HISTORY OF PRESENT ILLNESS: Mr. Doe is a pleasant 77-year-old white gentleman who comes to the hospital for epigastric pain. He had nausea, vomiting, epigastric pain, chills, fevers. He had a C T of the abdomen that showed no acute abdominal abnormality, so he was admitted for an ACS rule out. He had 3 negative troponins and eventually underwent a nuclear stress test that showed mildly reduce d EF at 46% and moderate large infarction and scar at the apex which is consistent with his history, he has a history of coronary artery disease. He presented to the hospital in 1998 with an anterior M I. He was taken to the lab by Dr. Preston on who was here at that time and he was found to have an o ccluded LAD and a chronically occluded right that fills from LAD collaterals. He opened up the LAD a nd stented it. He did not follow up with any professor of journalism up until [address] Irby. Last ike e he was seen was in July of last year. At that point, he was complaining of chest pain with exertion . He was scheduled to have an echocardiogram and a stress test which he never had. He continues to smoke about a pack and a half a day. Currently, he denies any chest pain, tightness, pressure. Duri ng his evaluation, his bilirubin spiked up, so a repeat ultrasound of the right upper quadrant was do ne and it showed acute cholecystitis. Surgery was called and they are planning on doing a laparoscop ic cholecystectomy tomorrow. Cardiology is being consulted for preoperative evaluation. No other is sues at that time. PAST MEDICAL HISTORY: 1. Coronary artery disease as above. 2. Hypertension. 3. Palpitations. 4. History of V-fib x2 during his SD in 1998. 5. Hyperlipidemia. 6. Smoker of 1-1/2 packs a day. 7. Noncompliance. SOCIAL HISTORY: Drinks a 6 pack of beers every day, smokes 1-1/2 packs of cigarettes a day. No drug use. PAST SURGICAL HISTORY: 1. Cardiac stents above. 2. Cataract surgery. OUTPATIENT MEDICATIONS: Include, 1. Aspirin 325 mg a day. 2. Lipitor 40 mg a day. 3. Colace 100 mg a day. 4. Toprol-XL 50 mg a day. 5. Quinapril 20 mg a day. ALLERGIES: CODEINE AND PENICILLIN. REVIEW OF SYSTEMS: A 12-point review of systems was done and is all negative unless stated in histor y of present illness. PHYSICAL EXAMINATION: VITAL SIGNS: Temperature 98.3, pulse 64, respiration rate 18, satting 94% on room air, blood pressur e 135/63. GENERAL: Awake, alert, oriented x3, in no distress and is maintaining. HEENT: Normocephalic, atraumatic. NECK: Supple. LUNGS: Lungs are clear. CARDIOVASCULAR: S1, S2, no S3 or S4, there is a grade 2/6 systolic murmur, rubs on border. ABDOMEN: Soft, positive bowel sounds. EXTREMITIES: No edema. SKIN: Warm and dry. LABORATORY WORK: Reviewed. CBC, chemistries, coags, UA studies and serologies were all reviewed. Blood cultures were positive for E. coli x2 bottles. Nuclear stress was reviewed, EF of 48% with apical scar which is consistent with his history of myoca rdial infarction. EF was 46%. He has not had an echocardiogram in our office at least in the last 7 years. Abdominal ultrasound was reviewed. ASSESSMENT AND PLAN: 1. Preoperative evaluation: Patient is intermediate risk for an intermediate risk procedure. He ma y proceed with the understood risk caveats. We will get an echocardiogram prior to surgery. We will try to get this today. I would continue on his home medication. At this time, he had a stress that showed no evidence of reversible ischemia and his coronary anatomy back in 1998 showed an occluded r ight coronary artery with collaterals from the left anterior descending. 2. Coronary artery disease: Stable at this time. No acute coronary syndrome. No ischemia on MPI a nd troponins were negative. 3. Hypertension. 4. Tobacco abuse, counseled on cessation. 5. Noncompliance. PLAN: 1. Continue current medication. 2. Echocardiogram to be done. 3. May proceed with surgery as scheduled for tomorrow. 4. Dr. Irby will follow up in the morning.
[2017-06-17] MEDS: Nicotine 21 MG PATCH TD SCH (17:09)
[2017-06-17] MEDS: Atorvastatin Calcium 40 MG TAB PO SCH (21:27)
[2017-06-17] MEDS: Cipro 250 MG TAB PO SCH (21:27)
[2017-06-18] MEDS: Cipro 250 MG TAB PO SCH (05:11)
[2017-06-18] MEDS ORDERED: Bupivacaine/Epinephrine 0.25% 30 ML VIAL ONE (06:43)
[2017-06-18] MEDS ORDERED: Iothalamate Meglumine 60% 50 ML VIAL FS ONE (06:43)
[2017-06-18] MEDS ORDERED: Fentanyl 250 MCG/5 ML VIAL ONE (06:45)
--- NOTE | 2017-06-18 07:32 | ULT ---
RIGHT UPPER QUADRANT ULTRASOUND: 06/16/17 HISTORY: Abnormal liver enzymes. Pain. Bacteremia. COMPARISON: None. TECHNIQUE: Utilizing multihertz transducer, sonographic imaging of the right upper quadrant is performed in the longitudinal and transverse plane. FINDINGS: The pancreas is obscured by bowel gas. Hepatic parenchyma has a normal echotexture. No hepatic masses or intrahepatic dilatation. Contour of the hepatic margin is maintained. Right hepatic lobe measures 19.5 cm. Common bile duct diameter is 0.5 cm. Main portal vein is patent. Appropriate directional flow. No pericholecystic fluid. Negative Melgar's sign. Right kidney has a normal cortical echotexture. No hydronephrosis. Right kidn ey measures 5.4 x 11.3 x 5.6 cm. Echogenic focus in the lumen of the gallbladder which may represent a small nonshadowing stone. Gallb ladder wall is not thickened. No pericholecystic fluid. IMPRESSION: Sonographic evidence of cholelithiasis without evidence of cholecystitis. POS: PPP
[2017-06-18] MEDS ORDERED: HYDROcodone/Acetaminophen 10/325 mg Tablet PO PRN ×2 (08:25)
[2017-06-18] MEDS ORDERED: Calcium Carbonate 500 MG ChewTAB PO PRN (08:25)
[2017-06-18] MEDS ORDERED: Morphine 4 MG/ML Carpuject SLOW IVP PRN (08:25)
[2017-06-18] MEDS ORDERED: Dextrose 5% in Water 1,000 ML IV PRN (08:25)
[2017-06-18] MEDS ORDERED: Ondansetron HCl/PF 4 MG/2 ML Vial IVP PRN (08:25)
[2017-06-18] MEDS ORDERED: Mag-Al 1200 mg/1200 mg/30 ML UDCUP PO PRN (08:25)
[2017-06-18] MEDS ORDERED: hydrALAZINE 20 MG/ML VIAL SLOW IVP PRN (08:25)
[2017-06-18] MEDS ORDERED: Promethazine HCl 25 MG/ML VIAL IM PRN (08:25)
[2017-06-18] MEDS ORDERED: Dextrose 50% Abboject 50 ML SYRINGE SLOW IVP PRN (08:25)
--- NOTE | 2017-06-18 08:35 | OP ---
DATE OF PROCEDURE: 06/18/2017 PREOPERATIVE DIAGNOSIS: Acute cholecystitis. SURGEON: Emmanuel Davidson M.D. PROCEDURE PERFORMED: Laparoscopic cholecystectomy with intraoperative cholangiogram. INDICATIONS: A 77-year-old male who was admitted with severe epigastric pain, thought it was a heart attack. Workup negative. He had ultrasound showing cholelithiasis. He did have positive blood cul tures for E. coli. His LFTs bumped and then they came back down. PAST MEDICAL HISTORY: Hypertension, coronary artery disease. He had a myocardial infarction in 1998 . FINDINGS: He had a negative cholangiogram. There were adhesions to the gallbladder. PROCEDURE: After informed consent was obtained, the patient was taken to the operating room, given g eneral endotracheal anesthesia. He was placed in the supine position. The abdomen was prepped and d raped in usual fashion. Local anesthesia infiltrated subcutaneously and deep, subumbilical incision was performed. The subcu divided sharply. Fascia grasped and two stay sutures of 0 Vicryl placed to either side of midline. Midline incised. Digital palpation revealed no local adhesions. A blunt 1 0/12 mm trocar inserted. Pneumoperitoneum was created to a pressure of 15 mmHg. Zero degree laparos cope inserted under direct vision, three 5 mm ports placed subcostally. Gallbladder grasped advanced superiorly. There were adhesions. These were taken down sharply. The peritoneum was lysed distall y to expose the cystic artery, cystic duct and critical view. A clip was placed at the base of the c ystic duct and an incision made in the cystic duct. The Arrow cholangiocatheter inserted and inserte d into the cystic duct. The balloon inflated and an intraoperative cholangiogram was performed utili zing fluoroscopy. This showed free flow into the duodenum, no filling defects. The catheter was rem gillian and the duct triply ligated and divided. The artery triply ligated and divided and the gallblad venkatesh was removed from its fossa utilizing electrocautery, removed from the abdomen through the umbilic al port. Hemostasis achieved with electrocautery. The trocars and retractors removed. The fascia c losed with interrupted 0 Vicryl suture. The skin closed with interrupted 4-0 Rapide. Dermabond appl ied. The patient tolerated the procedure well and was transferred to recovery in good condition. Sp onge and needle count verified correct x2.
[2017-06-18] MEDS ORDERED: Famotidine/PF 20 mg/2ml Vial SLOW IVP SCH (09:00)
[2017-06-18] MEDS ORDERED: Famotidine 20 MG TAB PO SCH (09:00)
--- NOTE | 2017-06-18 10:03 | PDOC.PN ---
- Subjective Encounter Start Date: 06/18/17 Encounter Start Time: 10:01 Mr. Doe was seen today in follow-up. He does not have any complaints other than some bloating, and a little abdominal soreness. - Objective MAR Reviewed: Yes Vital Signs & Weight: Vital Signs (12 hours) Temp Pulse Resp BP BP Pulse Ox 06/18/17 09:35 97.5 F L 61 18 132/84 91 L 06/18/17 08:13 95 06/18/17 05:00 93 L 06/18/17 04:00 97.5 F L 55 L 16 132/72 132/72 94 L 06/18/17 00:00 135/70 06/17/17 23:49 98.3 F 56 L 16 136/70 95 Weight Weight 193 lb 9.6 oz I&O: 06/17/17 06/18/17 06/19/17 06:59 06:59 06:59 Intake Total 1440 850 Output Total 1450 Balance -10 850 Result Diagrams: 06/17/17 05:48 06/16/17 05:24 Phys Exam - Physical Examination HEENT: PERRLA Respiratory: no wheezing, no rales, no rhonchi, clear to auscultation bilateral Cardiovascular: RRR, no significant murmur, no rub Gastrointestinal: soft, non-tender, positive bowel sounds Musculoskeletal: no edema Dx/Plan (1) Bacteremia, escherichia coli Code(s): R78.81 - BACTEREMIA Status: Acute (2) Coronary artery disease Code(s): I25.10 - ATHSCL HEART DISEASE OF [place] CORONARY ARTERY W/O ANG PCTRS Status: Chronic (3) Abnormal LFTs Code(s): R94.5 - ABNORMAL RESULTS OF LIVER FUNCTION STUDIES Status: Acute Comment: LFTs still improving, likely due to sepsis (4) HTN (hypertension) Code(s): I10 - ESSENTIAL (PRIMARY) HYPERTENSION Status: Chronic Comment: Monitor vital signs and titrate antihypertensives as needed (5) Tobacco abuse Code(s): Z72.0 - TOBACCO USE Status: Chronic Comment: Pt stopped NRT since it gave him high blood pressure in the past - Plan * E Coli sepsis from Gallbladder disease- will change his antibiotic to Cipro or Levaquin. He is s/p Lap Mya * HTN- blood pressure is stable * CAD- stable * Discharge Disposition as per Surgery
[2017-06-18] MEDS: D5 1/2 NS w/20 mEq KCL 1,000 ML IV SCH ×2 (10:07→16:10)
[2017-06-18] MEDS: Enoxaparin Sodium 40 MG/0.4 ML SYRINGE SC SCH (10:09)
[2017-06-18] MEDS: Aspirin 325 MG TAB PO SCH (10:09)
[2017-06-18] MEDS ORDERED: Ketorolac Tromethamine 30 MG/ML VIAL IVP SCH (12:00)
[2017-06-18 12:26] VITALS: TEMP 97.4
[2017-06-18] MEDS: Nicotine 21 MG PATCH TD SCH (14:17)
--- NOTE | 2017-06-18 15:02 | RAD ---
INTRAOPERATIVE CHOLANGIOGRAM: Date: 06/18/17 HISTORY: Post cholecystectomy. FINDINGS: Single image from an intraoperative cholangiogram submitted for interpretation. Imaging of the right upper quadrant demonstrates cannulation of cystic duct with surgical instruments overlying the right upper quadrant. There is extravasation of contrast in the region of the cannulation of the cystic janelle t. Common duct is opacified without a persistent filling defect seen. There is reflux of contrast int o the pancreatic duct. There is evidence of free spill of the contrast into the duodenum. No filling defect is appreciated. Small right intrahepatic bowel duct is opacified which is normal in caliber. IMPRESSION: Intraoperative cholangiogram demonstrating no persistent filling defect in the common duct, and there is free spill of contrast into the small bowel. Correlation with intraoperative findings is recommen ded. POS: OLIVIA
--- NOTE | 2017-06-18 15:48 | DIS ---
DISCHARGE DIAGNOSIS: Acute cholecystitis. PROCEDURES DURING ADMISSION: Laparoscopic cholecystectomy with cholangiogram. HOSPITAL COURSE: Patient was admitted. He had a CT scan and acute abdomen series for epigastric pedro n. It showed thickening of the urinary bladder, but otherwise they did not see a reason. He has a h istory of heart disease, so they worked him up for heart disease. They did a nuclear medicine stress test that did not show any reversible ischemia. Then, they did an ultrasound that showed gallstones . General Surgery was consulted. He did have elevated liver function tests. They got better. He u nderwent a laparoscopic cholecystectomy with cholangiogram that was fine. He is feeling fine. He wa nts to go home. DISCHARGE CONDITION, DISPOSITION AND MEDICATIONS: He is now being discharged in good condition to ho me on hydrocodone, Zofran, and his usual medications. DISCHARGE FOLLOWUP: He will follow up with me in 2 weeks.
[2017-06-18] MEDS: Acetaminophen 325 MG TAB PO PRN (16:11)
[2017-06-18 16:15] VITALS: BP 155/74
[2017-06-18] MEDS ORDERED: Dexamethasone 20 MG/5 ML VIAL ONE (16:31)
[2017-06-18] MEDS ORDERED: Ondansetron HCl/PF 4 MG/2 ML Vial ONE (16:31)
[2017-06-18] MEDS ORDERED: Lidocaine 1% PF 5 ML VIAL ONE (16:31)
[2017-06-18] MEDS ORDERED: Glycopyrrolate 0.2 MG/ML 5 ML SYRINGE ONE (16:31)
[2017-06-18] MEDS ORDERED: PROPOFOL 200 MG/20 ML VIAL ONE (16:31)
--- NOTE | 2017-06-18 21:06 | DIS ---
PRIMARY CARE PHYSICIAN: Dr. Caity Metcalf. DATE OF ADMISSION: 06/13/2017 DATE OF DISCHARGE: 06/18/2017 DISCHARGE DISPOSITION: Home. PRIMARY DISCHARGE DIAGNOSES: 1. Escherichia coli sepsis secondary to cholelithiasis. 2. Coronary artery disease. 3. Hypertension. 4. Tobacco abuse. 5. History of myocardial infarction. DISCHARGE MEDICATIONS: Include ciprofloxacin 500 mg twice a day for 2 weeks, Lipitor 40 mg q.p.m., a spirin 325 mg daily, docusate sodium 100 mg daily, Zofran 4 mg q.6 hours as needed and Accupril 20 mg daily. PROCEDURES DONE DURING THE ADMISSION: The patient had a CT scan of the abdomen and pelvis in which t here were no acute findings. There was some evidence of an enlarged prostate, some mural thickening of the urinary bladder, could be related to bladder outlet obstruction, and 1.5-cm nonspecific adrena l nodule. The patient had a nuclear stress test which demonstrated a moderate to large inferior scar at the apex, but no evidence of any reversible ischemia. The patient had an abdominal ultrasound sh owing evidence of cholelithiasis without cholecystitis. The patient also had a laparoscopic cholecys tectomy with intraoperative cholangiogram. CODE STATUS: FULL CODE. ALLERGIES: CODEINE and PENICILLIN. HOSPITAL COURSE: Mr. Doe is a pleasant 77-year-old gentleman who presented to the emergency ro om with complaints of epigastric pain. A CT scan of the abdomen and pelvis as well as an acute abdom en series was done in the ER which was essentially unremarkable. He was admitted and then there was concern due to his history of coronary artery disease with epigastric pain could in fact be due to co ronary artery disease. A stress test was ordered which was essentially negative for reversible ische ruddy. During this time, it was discovered that he had blood cultures 2/2 positive for E. coli. Infec tious Disease consult was obtained as the source was not readily apparent and it was recommended that an abdominal ultrasound be done to rule out biliary disease. The patient in fact had a stone in the gallbladder and it was felt due to the increase in the liver function test which was transient incre ase and decrease, that the patient likely passed a stone and that the E. coli sepsis was due to bilia ry disease. For this reason, a General Surgery consult was obtained. The patient underwent laparosc opic cholecystectomy with intraoperative cholangiogram. He tolerated the procedure well and was subs equently able to be discharged home. He will be on ciprofloxacin for 2 weeks due to the E. coli seps is and he has been instructed to follow up with his primary care physician in 1-2 weeks and also with General Surgery as instructed.
--- NOTE | 2017-07-01 01:26 | EKG ---
Test Reason : CP Blood Pressure : / mmHG Vent. Rate : 063 BPM Atrial Rate : 063 BPM P-R Int : 160 ms QRS Dur : 094 ms QT Int : 432 ms P-R-T Axes : 052 -20 066 degrees QTc Int : 442 ms Normal sinus rhythm Septal infarct , age undetermined T wave abnormality, consider anterolateral ischemia Abnormal ECG Confirmed by PRAKASH ECHEVERRIA, DANILO ([id number]), visual effects editor JEN ROTHMAN ([id number]) on 07/01/2017 1:25:39 AM Referred By: Confirmed By:DANILO RANDALL MD
--- NOTE | 2017-07-23 15:15 | STRESS ---
Acquisition Time: 2017-06-15 11:05:34 Total Exercise Time: 00:04:00 Test Indications: CHEST PAIN Medications: Protocol: ADENOSINE Max HR: 080 BPM 55% of Pred: 145 BPM Max BP: 112/052 mmHG Max Work Load: 1.0 METS RESTING ECG: NORMAL SINUS RHYTHM AT 66 [address]PM WITH NON-SPECIFIC ST SEGMENT AND T-WAVE CHANGES; OLD SEPTAL LA SYMPTOMS: NONE NORMAL BP RESPONSE ECTOPY: RARE PAC'S AND PVC'S ECG STRESS: NO SIGNIFICANT CHANGES INTERPRETATION: INDETERMINATE ECG/AWAIT NUCLEAR IMAGES FOR DEFINITIVE DIAGNOSIS Confirmed by MELANIE ALVAREZ ELLEN ([id number]) on 07/23/2017 3:15:33 PM Referred By: MD Shazia PARISH Confirmed By:AUSTIN ALVAREZ PA-C
== END 2017-06-18 18:37 | disposition home or self-care (01) | DRG 854 ==
LOC: ERS 09:38 → 2SW 13:52 → OBSVTOIN 06-13 08:40 → 2NO 06-13 12:51
PROVIDERS: ADMIT Internal Medicine; ATTEND Internal Medicine
PROC: 0FT44ZZ Resection of Gallbladder, Percutaneous Endoscopic Approach (ICD-10-PCS; principal; 2017-06-18)
PROC: BF13YZZ Fluoroscopy of Gallbladder and Bile Ducts using Other Contrast (ICD-10-PCS; 2017-06-18)
DX: A41.51 Sepsis due to Escherichia coli [E. coli] (principal); K80.00 Calculus of gallbladder with acute cholecystitis without obstruction; N13.8 Other obstructive and reflux uropathy; F10.20 Alcohol dependence, uncomplicated; I10 Essential (primary) hypertension; I25.10 Atherosclerotic heart disease of native coronary artery without angina pectoris; R94.5 Abnormal results of liver function studies; Z90.49 Acquired absence of other specified parts of digestive tract; K82.9 Disease of gallbladder, unspecified; I25.2 Old myocardial infarction; F17.210 Nicotine dependence, cigarettes, uncomplicated; N40.1 Benign prostatic hyperplasia with lower urinary tract symptoms; K83.9 Disease of biliary tract, unspecified; Z91.19 Patient's noncompliance with other medical treatment and regimen
CPT/HCPCS: 36415; 47532; 74022; 74177; 76705; 78452; 80053; 80074; 81003; 82550; 83690; 84484; 85025; 85610; 85730; 87040; 87077; 87086; 87149; 87186; 88304; 93005; 93017; 93306; 94760; 96374; A4216; A9500; C9113; J0131; J0153; J1100; J1610; J1650; J1885; J2001; J2185; J2405; J2704; J3010; Q9961; S0028

== ENCOUNTER 2022-03-29 14:45 | Emergency (ER) | payer MEDICARE, OTHER ==
[~2022-03-29 14:45] MED LIST: Iopamidol-370 76% 500 ML 1 ML ONE
[2022-03-29 15:56] LABS: #Eosinphils 0.3 thou/uL (0.0-0.7); #Lymphocytes 1.2 thou/uL (1.20-3.40); #Monocytes 0.7 thou/uL (0.11-0.59); %Basophils 0.4 % (0.0-1.0); %Eosinophils 3.6 % (0.0-10.0); %Lymphocytes 12.6 % (21.0-51.0); %Monocytes 7.3 % (0.0-10.0); %Neutrophils 76.1 % (42.0-75.0); Hemoglobin 15.4 g/dL (14.0-18.0); Mean Corpuscular HGB CONC 33.8 g/dL (32.0-36.0); Mean Corpuscular Hemoglobin 33.4 pg (27.0-31.0); Mean Corpuscular Volume 98.9 fl (78.0-98.0); Mean Platelet Volume 7.4 fL (7.4-10.4); Platelet Count 178 10x3/uL (130-400); RBC Distribution Width 12.3 % (11.5-14.5); Red Blood Cell (RBC) Count 4.62 mill/uL (4.70-6.10); White Blood Cell (WBC) Count 9.1 10x3/uL (4.8-10.8)
[2022-03-29 16:17] LABS: ALT (SGPT) 60 U/L (8-55); AST (SGOT) 83 U/L (5-34); Albumin 3.9 g/dL (3.4-4.8); Alkaline Phosphatase 86 U/L (40-110); Anion Gap 8 mmol/L (10-20); BUN (Urea Nitrogen) 14 mg/dL (8.4-25.7); Bilirubin, Total 1.2 mg/dL (0.2-1.2); Calc. Creatinine Clearance 0 mL/min (70-130); Calcium 8.8 mg/dL (7.8-10.44); Carbon Dioxide 28 mmol/L (23-31); Chloride 104 mmol/L (98-107); Estimated GFR 88; Globulin 2.7 g/dL (2.4-3.5); Glucose 97 mg/dL (83-110); Lipase 45 U/L (8-78); Potassium 4.3 mmol/L (3.5-5.1); Protein, Total 6.6 g/dL (5.8-8.1); Sodium 136 mmol/L (136-145)
== END 2022-03-29 18:01 | disposition home or self-care (01) ==
LOC: ERS 14:45
DX: K21.9 Gastro-esophageal reflux disease without esophagitis (principal); I25.2 Old myocardial infarction; E78.5 Hyperlipidemia, unspecified; I10 Essential (primary) hypertension; F17.210 Nicotine dependence, cigarettes, uncomplicated; Z79.899 Other long term (current) drug therapy
CPT/HCPCS: 36415; 71045; 74177; 80053; 83690; 84484; 85025; 93005; Q9967